=== PATIENT | male | born 1995 | race Asian ===

== ENCOUNTER 2016-03-15 11:35 | Emergency (ER) | payer OTHER ==
[~2016-03-15] VITALS: Ht 182.9 cm; Wt 123.4 kg
[~2016-03-15 11:35] MED LIST: ASPIRIN81 M1; LASIX20 MG PO; OXYCODONE10 MG; VASOTEC2.5 MG; VASOTEC5 M1 PO
[2016-03-15 12:24] LABS: EOSINOPHIL (%) 2.4 % (0-5); EOSINOPHIL COUNT 0.1 K/uL (0-0.3); HEMATOCRIT 47.5 % (38.0-50.0); IMMATURE GRANULOCYTE (%) 0.2 % (0.0-0.7); IMMATURE GRANULOCYTE COUNT 0.1 K/uL; MCH 28.7 PG (29.0-34.0); MCHC 34.5 G/DL (30.0-36.0); MCV 83.2 FL (86-99); MEAN PLAT.VOLUME 11.4 uM^3 (9.0-12.4); MONOCYTE (%) 5.1 % (3-12); MONOCYTE COUNT 0.3 K/uL (0-0.8); NEUTROPHIL (%) 56.9 % (45-76); NEUTROPHIL COUNT 3.3 K/uL (1.8-6.4); PLATELET COUNT 197 K/uL (156-360); RBC DIS.WIDTH-CV 12.3 % (11.8-14.6); RBC DIS.WIDTH-SD 37.3 % (39-53); RED BLOOD COUNT 5.71 M/uL (4.00-5.50); WHITE BLOOD COUNT 5.7 K/uL (4.1-10.2)
[2016-03-15 12:41] LABS: CHLORIDE 106 mEq/L (99-109); POTASSIUM 3.9 mEq/L (3.7-5.4); SODIUM 140 mEq/L (136-147)
[2016-03-15 12:43] LABS: GLUCOSE 92 mg/dL (70-99)
[2016-03-15 12:45] LABS: ANION GAP 13 MEQ/L (2-14)
[2016-03-15 12:47] LABS: GFR ESTIMATE (CALCULATED) > 59 mL/min/
[2016-03-15 12:48] LABS: UREA NITROGEN (BUN) 14 mg/dL (9-23)
[2016-03-15 12:53] LABS: INTER. NORMALIZED RATIO 2.7; PROTHROMBIN TIME 28.7 (9.2-11.2); PTT 53.5 (25-32)
[2016-03-15 14:00] LABS: TOTAL BILIRUBIN 2.6 mg/dL (0.0-1.0)
[2016-03-15 14:01] LABS: ALKALINE PHOSPHATASE 69 IU/L (3-129)
[2016-03-15 14:04] LABS: DIRECT BILIRUBIN 0.8 mg/dL (0.0-0.3)
[2016-03-15 14:22] LABS: ADD MIUA? YES; BLOOD LARGE; COLOR RED ((YELLOW)); GLUCOSE (STRIP) NEGATIVE; PH, URINE 5.5 (5-8); PROTEIN (STRIP) 300; SPECIFIC GRAVITY 1.034 (1.000-1.030)
[2016-03-15 14:24] LABS: RED BLOOD CELLS TNTC /HPF (0-5)
[2016-03-15] MEDS ORDERED: KEFLEX500 MG PO (16:33)
[2016-03-15 16:55] VITALS: BP 129/61
== END 2016-03-15 16:55 | disposition home or self-care (01) ==
LOC: EME 11:35
DX: N30.91 Cystitis, unspecified with hematuria (principal); R31.0 Gross hematuria; Z79.01 Long term (current) use of anticoagulants; Z95.2 Presence of prosthetic heart valve; Z79.891 Long term (current) use of opiate analgesic; Z79.82 Long term (current) use of aspirin
CPT/HCPCS: 74176; 80048; 80076; 81003; 85025; 85610; 85730; 87086; 99281; 99284; J0696